=== PATIENT | female | born 1995 | race Caucasian/White ===

== ENCOUNTER 2022-01-19 00:22 | Emergency (ER) | payer OTHER, SELFPAY ==
[2022-01-19 00:35] VITALS: BP 137/80; PULSE 83; RESP 16; TEMP 37.1; O2SAT 100; BMI 22.8
--- NOTE | 2022-01-19 00:45 | ED_ITS ---
HPI - Abdominal Pain General Chief Complaint: Abdominal Pain Stated Complaint: Abd pain, nausea Time Seen by Provider: 01/19/22 00:38 Source: patient Mode of arrival: Ambulatory History of Present Illness HPI narrative: 26-year-old female nonsmoker with history gallbladder disease presents with her significant other and a chief complaint of epigastric pain associated with nausea over the past day or 2. She states that her symptoms started after eating some spicy Cheetos and now for the past day or 2 she is had increasing upper abdominal pain, burning and nausea soon after eating. She denies any radiation of her symptoms. She is had no fever or chills. She denies any change in her bowels. She is had no dysuria, frequency or urgency. Related Data Previous Rx's Medication Instructions Recorded ondansetron 4 mg disintegrating 4 mg PO TID-QID PRN nausea and 01/19/22 tablet vomiting #10 tabs pantoprazole 40 mg tablet,delayed 40 mg PO DAILY #30 tabs 01/19/22 release (Protonix) Review of Systems Review of Systems Narrative: GENERAL: See HPI HEENT: Denies sinus pain, ear pain, sore throat, difficulty swallowing, dizziness. RESPIRATORY: Denies dyspnea, cough, wheezing, hemoptysis, sputum. CARDIOVASCULAR: Denies chest pain, palpitations, orthopnea, edema, GASTROINTESTINAL: See HPI : Denies dysuria, frequency, incontinence, hematuria, urinary retention. MUSCULOSKELETAL: denies weakness, joint pain, or bony pain SKIN: Denies rash, skin lesions, or other NEUROLOGIC: Denies weakness, headache, numbness, change in speech, confusion, seizures, incoordination. PSYCHIATRIC: No concerning psychosocial issues. 12 point review of systems is negative except for those stated above Patient History Social History Smoking Status: Never smoker Smoking Status: Never smoker alcohol intake frequency: 0-2 drinks per day Substance Use Type: does not use Exam Narrative Exam Narrative: GENERAL: 26 year old patient appears stated age. Well-developed patient, in mild distress. HEAD: Atraumatic. Normocephalic. EYES: Pupils equal round and reactive. Extraocular motions intact. No scleral icterus. No injection or drainage. ENT: Nose without bleeding, purulent drainage. Throat without erythema, tonsillar hypertrophy or exudate. Airway patent. NECK: Trachea midline. Non tender CARDIOVASCULAR: Regular rate and rhythm without murmurs, gallops, or rubs. RESPIRATORY: Clear to auscultation. Breath sounds equal bilaterally. No wheezes, rales, or rhonchi. GASTROINTESTINAL: Abdomen soft, mild epigastric pain, nondistended. EXTREMITIES: No edema or joint tenderness. BACK: Nontender without deformity or crepitance. No flank tenderness. NEURO: AOx3. SKIN: No rash or erythema of visible areas Initial Vital Signs Initial Vital Signs: Vital Signs Temperature 98.7 F 01/19/22 00:35 Pulse Rate 83 01/19/22 00:35 Respiratory Rate 16 01/19/22 00:35 Blood Pressure 137/80 01/19/22 00:35 Pulse Oximetry 100 01/19/22 00:35 Oxygen Delivery Method 01/19/22 00:35 Course Orders Ordered: ED Orders 01/19/22 00:35 Urine Culture Stat Urine Microscopic Stat 01/19/22 00:55 Complete Blood Count AUTO DIFF Stat Comprehensive Metabolic Panel Stat Lipase Stat Discontinued Medications Sodium Chloride (Normal Saline 0.9%) 1,000 mls @ 1,000 mls/hr IV BOLUS ONE Stop: 01/19/22 01:44 Last Infusion: 01/19/22 01:55 Dose: 1,000 mls/hr Documented By: Admin: 01/19/22 00:56 Dose: 1,000 mls/hr Documented By: SANTOS Ondansetron HCl (Ondansetron 4 Mg/2 Ml Inj) 4 mg IV NOW ONE Stop: 01/19/22 00:46 Last Admin: 01/19/22 00:57 Dose: 4 mg Documented By: SANTOS Pantoprazole Sodium (Pantoprazole 40 Mg Vial) 40 mg IV NOW ONE Stop: 01/19/22 00:46 Last Admin: 01/19/22 00:56 Dose: 40 mg Documented By: SANTOS Vital Signs Vital signs: Vital Signs - 8 hr 01/19/22 00:35 Temperature 98.7 F Pulse Rate 83 Respiratory Rate 16 Blood Pressure 137/80 Pulse Oximetry 100 Oxygen Delivery Method Room Air MDM - Abdominal Pain Lab Data Result diagrams: 01/19/22 00:55 01/19/22 00:55 Labs: Lab Results 07/28/22 07/28/22 07/28/22 Range/Units 00:35 00:55 00:55 WBC 9.4 (4.5-11.0) X10^3/uL RBC 4.28 (4.0-5.2) X10^6/uL Hgb 13.0 (12.0-16.0) g/dL Hct 38.5 (36-46) % MCV 89.8 (80-100) fL MCH 30.4 (26-34) PG MCHC 33.8 (30-36) % RDW 12.8 (11.6-14.8) % Plt Count 332 (150-400) X10^3/uL Neut % (Auto) 44.1 L (50-75) % Lymph % (Auto) 43.3 H (25-40) % [place] % (Auto) 7.9 (3-14) % Eos % (Auto) 4.2 H (2-4) % Baso % (Auto) 0.5 (0-2) % Neut # (Auto) 4200 (9286-8223) /uL Lymph # (Auto) 4100 (0815-9351) /uL [place] # (Auto) 700 (0-900) /uL Eos # (Auto) 400 (0-450) /uL Baso # (Auto) 100 (0-100) /uL Sodium 139 (137-145) mmol/L Potassium 3.6 (3.4-5.1) mmol/L Chloride 101 (98-107) mmol/L Carbon Dioxide 26 (22-32) mmol/L BUN 15 (7-17) mg/dL Creatinine 0.74 (0.52-1.04) mg/dL Estimated GFR > 60 (>60) mL/min BUN/Creatinine Ratio 20.3 (6-22) Glucose 79 (70-100) mg/dL Calcium 9.4 (8.4-10.2) mg/dL Total Bilirubin 0.3 (0.2-1.3) mg/dL AST 19 (14-36) IU/L ALT 14 (<35) IU/L Alkaline Phosphatase 49 (38-126) U/L Total Protein 7.7 (6.3-8.2) g/dL Albumin 4.8 (3.5-5.0) g/dL Globulin 2.9 (1.7-4.1) g/dL Albumin/Globulin Ratio 1.7 (1.0-2.8) Lipase 72 (23-300) U/L Urine RBC None seen (0-5/HPF) Urine WBC 0-1/hpf (0-5/HPF) Ur Squamous Epith Cells 10-30 /hpf H (0-5/HPF) Urine Bacteria Moderate (10-30) H (None) Ur Culture Indicated? Culture not indicate Point of care testing: Point of Care Testing Test Results Negative Urine Dip Bedside Urine Glucose Negative Bedside Urine Bilirubin - Negative Bedside Urine Ketone - Negative Urine Specific [place] 1.025 Bedside Urine Occult Blood +/- Bedside Urine pH 6.0 Bedside Urine Protein - Negative Bedside Urine Urobilinogen - Negative Bedside Urine Nitrite - Negative Bedside Urine Leukocytes - Negative Esterase MDM Narrative Medical decision making narrative: Patient presents with epigastric pain after eating and has a surgically absent gallbladder. Vital signs are reassuring and there is no evidence of sepsis. Labs are unremarkable and though gallbladder, liver and pancreas are considered there are no findings in the labs to suggest this. She feels significant if not complete resolution of symptoms with above-stated therapies raising the question of other GI causes such as GERD or ulcer. We did discuss the possibility of advanced imaging such as CT scan but elect to hold off for now given how well she feels. Return precautions have been discussed and her questions have been answered to her apparent satisfaction Discharge Plan Departure Patient Disposition: Home Clinical Impression: Dyspepsia Instructions: DI for Dyspepsia Activity Restrictions/Additional Instructions: *You have been diagnosed with [abdominal pain likely due to acid reflux or an early ulcer * As we discussed your history and physical exam as well as labs and imaging are very reassuring. There is no evidence of any severe diagnoses that would require a specific or immediate intervention. *What to do: *Please continue to take your regular medications as directed. [x ] New medication prescriptions sent to your pharmacy: [[facility] in [place]] *Please follow up with your primary care provider in 2-3 days, call for an appointment. Let them know you were seen in the Emergency Department and that we ask that you be seen in follow up. We will electronically transmit a record of today's note if your PCP is in our system *Please consider a clear liquid diet for the next 24-48 hours and then slowly advance to regular as tolerated. Also, try to avoid alcohol, nicotine, caffeine, spicy, acidic or fatty foods as this may worsen your symptoms *If you do not have a primary care provider please contact the [facility] Resource line at [phone]. They will ask some questions about your medical history and help get you set up with a doctor in the community. *Return to Emergency Department if you should have any new, worsening or concerning symptoms, such as [fever greater than 101 F, shaking chills, worsening pain, persistent vomiting or other bothersome symptoms] Prescriptions: New pantoprazole [Protonix] 40 mg tablet,delayed release (DR/EC) 40 mg PO DAILY Qty: 30 0RF ondansetron 4 mg tablet,disintegrating 4 mg PO TID-QID PRN (Reason: nausea and vomiting) Qty: 10 0RF Visit Report Forms: Patient Portal/API
[2022-01-19] MEDS: PANTOPRAZOLE 40 MG VIAL IV (00:56)
[2022-01-19] MEDS: SODIUM CHLORIDE 0.9% 1,000 ML 1000 ML IV (00:56)
[2022-01-19] MEDS: ONDANSETRON 4 MG/2 ML INJ IV (00:57)
[2022-01-19 01:11] LABS: Add Manual Diff / Slide Review NO; Basophils Absolute Auto 100 /uL (0-100); Basophils Percent Auto 0.5 % (0-2); Eosinophils Absolute Auto 400 /uL (0-450); Eosinophils Percent Auto 4.2 % (2-4); Hematocrit 38.5 % (36-46); Lymphocytes Absolute Auto 4100 /uL (1100-4500); Lymphocytes Percent Auto 43.3 % (25-40); Mean Corpuscular HGB Conc 33.8 % (30-36); Mean Corpuscular Hemoglobin 30.4 PG (26-34); Mean Corpuscular Volume 89.8 fL (80-100); Monocytes Absolute Auto 700 /uL (0-900); Monocytes Percent Auto 7.9 % (3-14); Neutrophils Absolute Auto 4200 /uL (1500-7000); Neutrophils Percent Auto 44.1 % (50-75); Platelet Count 332 X10^3/uL (150-400); Red Blood Cell Count 4.28 X10^6/uL (4.0-5.2); Red Cell Distribution Width 12.8 % (11.6-14.8); White Blood Cell Count 9.4 X10^3/uL (4.5-11.0)
[2022-01-19 01:17] LABS: RBC Urine None Seen (0-5/HPF); WBC Urine 0-1/HPF (0-5/HPF)
[2022-01-19 01:18] LABS: Bacteria Urine Moderate (10-30); Squamous Epithelial Cell Urine 10-30 /HPF (0-5/HPF)
[2022-01-19 01:20] LABS: Alanine Aminotransferase 14 IU/L (<35); Albumin 4.8 g/dL (3.5-5.0); Albumin Globulin Ratio 1.7 (1.0-2.8); Alkaline Phosphatase 49 U/L (38-126); Aspartate Aminotransferase 19 IU/L (14-36); BUN Creatinine Ratio 20.3 (6-22); Bilirubin Total 0.3 mg/dL (0.2-1.3); Blood Urea Nitrogen 15 mg/dL (7-17); Calcium 9.4 mg/dL (8.4-10.2); Carbon Dioxide 26 mmol/L (22-32); Chloride 101 mmol/L (98-107); Estimated Glomerular Filt Rate > 60 mL/min (>60); Globulin 2.9 g/dL (1.7-4.1); Glucose 79 mg/dL (70-100); HEMOLYSIS < 15 (0-50); Lipase 72 U/L (23-300); Potassium 3.6 mmol/L (3.4-5.1); Sodium 139 mmol/L (137-145); Total Protein 7.7 g/dL (6.3-8.2)
== END 2022-01-19 01:57 | disposition home or self-care (01) ==
PROVIDERS: Emergency Provider Emergency Medicine
DX: R10.13 Epigastric pain (principal)
CPT/HCPCS: 80053; 81003; 81015; 81025; 83690; 85025; 87086; 96374; 96375; 99283; 99284; C9113; J2405

== ENCOUNTER → 2022-06-01 16:32 | Outpatient (CLI) | payer OTHER, SELFPAY ==
[2022-06-01 17:08] LABS: Add Manual Diff / Slide Review NO; Basophils Absolute Auto 0 /uL (0-100); Basophils Percent Auto 0.2 % (0-2); Eosinophils Absolute Auto 200 /uL (0-450); Eosinophils Percent Auto 1.9 % (2-4); Hematocrit 36.7 % (36-46); Hemoglobin 12.6 g/dL (12.0-16.0); Lymphocytes Absolute Auto 2000 /uL (1100-4500); Lymphocytes Percent Auto 19.4 % (25-40); Mean Corpuscular HGB Conc 34.5 % (30-36); Mean Corpuscular Hemoglobin 30.5 PG (26-34); Mean Corpuscular Volume 88.4 fL (80-100); Monocytes Absolute Auto 700 /uL (0-900); Monocytes Percent Auto 6.5 % (3-14); Neutrophils Absolute Auto 7600 /uL (1500-7000); Platelet Count 308 X10^3/uL (150-400); Red Blood Cell Count 4.15 X10^6/uL (4.0-5.2); Red Cell Distribution Width 13.2 % (11.6-14.8); White Blood Cell Count 10.5 X10^3/uL (4.5-11.0)
[2022-06-01 18:12] LABS: Hepatitis B Surface Antigen NEGATIVE s/c (NEGATIVE); Rubella Antibody IgG 97.4 IU/mL (>15)
[2022-06-01 18:28] LABS: HIV 1 & 2 Ab/Ag 4th Gen Combo NEGATIVE (NEGATIVE); Hep C Virus Ab w/Reflex Quant NEGATIVE s/c (NEGATIVE)
[2022-06-02 10:32] LABS: RPR Screen Non Reactive (Non Reactive)
[2022-06-03 09:30] LABS: Varicella IgG Antibody 714 index (Immune >165)
== END ==
PROVIDERS: Referring Provider Obstetrics & Gynecology; Visit Provider Obstetrics & Gynecology
DX: Z34.01 Encounter for supervision of normal first pregnancy, first trimester (principal)
CPT/HCPCS: 36415; 80055; 86787; 86803; 86850; 86900; 86901; 87389

== ENCOUNTER → 2022-07-13 15:12 | Outpatient (CLI) | payer OTHER, SELFPAY ==
[2022-07-17 12:09] LABS: AFP Value 38.9 ng/mL (.); Gest Age on Col Date 19.4 weeks (.); Insulin Dep Diabetes No (.); OSBR Risk 1IN 10000 (.); Results Report (.); Test Results *Screen Negative* (.)
== END ==
PROVIDERS: Referring Provider Obstetrics & Gynecology; Visit Provider Obstetrics & Gynecology
DX: Z34.02 Encounter for supervision of normal first pregnancy, second trimester (principal); Z3A.18 18 weeks gestation of pregnancy
CPT/HCPCS: 36415; 82105

== ENCOUNTER → 2022-07-26 09:53 | Outpatient (CLI) | payer OTHER, SELFPAY ==
--- NOTE | 2022-07-26 09:54 | DI.US.S_ITS ---
PROCEDURE: US OB >= 14 WEEKS FETUS INDICATIONS: ANATOMY OUTSIDE/PRIOR DATING DATA: Last menstrual period (LMP): 02/22/2022 LMP-based estimated date of delivery (NATY): 11/29/2022 First dating scan (date and location): 05/02/2022 Estimated date of delivery (NATY) from first dating scan: 12/05/2022 The calculations are made using the working NATY of 11/29/2022. TECHNIQUE: Real-time scanning was performed of the fetus, with image documentation and biometric measurements. Endovaginal scanning: Not performed. COMPARISON: [facility], , OB >= 14 WEEKS FETUS, 06/15/2022, 16:32. FINDINGS: General: A single living intrauterine gestation is present. Presentation: Breech Placenta: Placental position is posterior, without previa. Amniotic fluid index: 9.9 cm, normal range is 5-24 cm. Single deepest vertical pocket is 3.2 cm. heart rate: 136 beats per minute. Maternal cervical canal: 3.9 cm long. Normal lower limit is 2.5 cm. biometrics: Biparietal diameter: 4.9 cm, 20 weeks 5 days Head circumference: 18.8 cm, 21 weeks 1 day Abdominal circumference: 15.9 cm, 21 weeks 0 days Femur length: 3.7 cm, 21 weeks 4 days Clinically estimated gestational age: 22 weeks 0 days Composite gestational age from present scan: 21 weeks 1 day Estimated weight and percentile: 411 grams, 14th percentile Anatomic survey: Neuro: Ventricles are non-dilated at less than 10 mm. Cisterna magna is normal at 3-11 mm. Cerebellum is normal in size and morphology. Nuchal skin fold: Not well visualized, partially related to gestational age. Face: Nose and lips, facial profile are normal. Spine: No evidence for spina bifida. Heart: 4-chambered heart is present, with normal ventricular outflow tracts. Diaphragm: Diaphragm is intact. Stomach: Left-sided stomach is present. Kidneys: No hydronephrosis. Normal is less than 5 mm in 2nd trimester, less than 7 mm in 3rd trimester. Cord: 3-vessel cord has orthotopic insertion. Bladder: Normal in size. Extremities: All 4 extremities identified. IMPRESSION: 1. Single live intrauterine . 2. Estimated weight is at the 14th percentile for gestational age. 3. anatomic survey is within normal limits. Nuchal fold is not well evaluated due to gestational age. We strive to produce accurate, complete, and clear reports of imaging services. To assist us in improving patient care, this report was composed using standard report templates and voice recognition software. Therefore, it may contain abnormal punctuation, insertions and/or omissions. Occasional wrong-word or sound-alike substitutions may occur. Though we review the report and make efforts to correct it, we do recommend that the report be read carefully in proper context to recognize any text inaccuracies. Approved by: Mp Anthony M.D. on 07/26/2022 at 13:19
== END ==
PROVIDERS: Referring Provider Obstetrics & Gynecology; Visit Provider Obstetrics & Gynecology
DX: Z34.82 Encounter for supervision of other normal pregnancy, second trimester (principal); Z3A.21 21 weeks gestation of pregnancy
CPT/HCPCS: 76811

== ENCOUNTER → 2022-08-10 14:37 | Outpatient (CLI) | payer OTHER, SELFPAY | PROVIDERS: Visit Provider Obstetrics & Gynecology | DX: Z34.01 Encounter for supervision of normal first pregnancy, first trimester (principal) | CPT/HCPCS: 87086 ==

== ENCOUNTER → 2022-08-25 11:04 | Outpatient (CLI) | payer OTHER, SELFPAY ==
[2022-08-25 13:32] LABS: Hematocrit 35.3 % (36-46); Hemoglobin 12.2 g/dL (12.0-16.0)
[2022-08-25 14:10] LABS: GTT (PREG) 1 Hour PP 50gm Dose 95 mg/dL (76-139)
== END ==
PROVIDERS: Referring Provider Obstetrics & Gynecology; Visit Provider Obstetrics & Gynecology
DX: Z34.02 Encounter for supervision of normal first pregnancy, second trimester (principal); Z3A.26 26 weeks gestation of pregnancy
CPT/HCPCS: 82950; 85014; 85018

== ENCOUNTER → 2022-11-15 12:06 | Outpatient (CLI) | payer OTHER, SELFPAY ==
[2022-11-16 10:42] LABS: Strep Grp B PCR POS for Grp B Strep
== END ==
PROVIDERS: Visit Provider Obstetrics & Gynecology
DX: Z34.03 Encounter for supervision of normal first pregnancy, third trimester (principal); Z3A.37 37 weeks gestation of pregnancy
CPT/HCPCS: 87653

== ENCOUNTER 2022-12-04 16:28 | Outpatient (CLI) | payer OTHER, SELFPAY ==
--- NOTE | 2022-12-04 17:15 | PM.OBTRLD ---
Visit Information Visit Information Date of evaluation: 12/04/22 Primary OB Provider: Beckie Valles On-call OB Provider: Beckie Valles Reason for Evaluation: Yes non-stress test non-stress test reason: other (Low heart rate in the office) [facility]LY [facility] Medical History (Updated 10/19/22 @ 10:05 by Lance Rodriguez MD) Allergies Chemical sensitivity Chicken pox Eczema Headache Herpes HSV-1 infection Migraines Patellar dislocation Seasonal allergies Surgical History (Updated 05/04/22 @ 22:04 by Barb Virk) Anesthesia History of cholecystectomy (~2012) [place] teeth extracted Family History (Updated 05/04/22 @ 22:06 by Barb Virk) Father Hodgkins lymphoma Non-Hodgkin lymphoma Hypertension Hyperlipidemia Cancer Mother Uterine fibroid Ovarian tumor Hypoglycemia Chemical sensitivity Hearing loss Brother Hearing loss Scoliosis Grandfather Stroke Heart disease Degenerative joint disease Hyperlipidemia Grandmother Oxygen dependent Social History marital status: unmarried,living together number of children: 0 household members: significant other lives independently: Yes caregiver/support person: No housing: other (5th wheel camper trailer) pets and animals: Yes (1 dog, aware of toxo precautions) education level: college (some college) occupational status: employed current occupational exposures/hazards: Yes (alcohol and chemical fumes; will get chemical respirator mask) special camron needs: No travel history: recent (domestic only) seatbelt use: always water heater temp set < 120 deg: No working smoke detector in home: Yes fire extinguisher in home: Yes carbon monox detector in home: Yes firearms in home: Yes firearms unloaded and locked: Yes do you feel safe at home: Yes Smoking Status: Former smoker (vaped, quit age 26) Tobacco: How many years used: 1 second hand exposure: No alcohol intake: former (2-4/week prior to ) substance use type: does not use during the past year weight has: remained stable well-balanced diet: rarely or never daily servings fruits/ve-1 (1-2) caffeine: Yes (aware of 200mg limit) Type(s) of exercise: walking, aerobic and weight lifting frequency: daily Evaluation Evaluation Baseline heart rate: 110 Variability: Moderate (11-25) monitor accelerations: Present Monitor Decelerations: Absent Category of Tracing: Reactive Diagnosis, Plan/Disposition Plan/Disposition Plan: Assessment: 27-year-old 1 para 0 at 39-,6/7 weeks gestation with low heart rate in the office by Doppler Reactive nonstress test Plan: Patient to come in December 05, 2022 for cervical ripening and then Pitocin induction on December 06, 2022 kick counts discuss OB Disposition: home
== END 2022-12-04 17:10 | disposition home or self-care (01) ==
LOC: OB 12-11 07:33
PROVIDERS: Referring Provider Obstetrics & Gynecology; Visit Provider Obstetrics & Gynecology
DX: O36.8330 Maternal care for abnormalities of the fetal heart rate or rhythm, third trimester, not applicable or unspecified (principal); Z3A.39 39 weeks gestation of pregnancy
CPT/HCPCS: 59025; G0378; G0379

== ENCOUNTER 2022-12-05 18:59 | Observation (INO) | payer OTHER, SELFPAY | END 2022-12-05 21:25 | disposition home or self-care (01) | LOC: LABOR 19:01 | PROVIDERS: Admitting Provider Obstetrics & Gynecology; Referring Provider Obstetrics & Gynecology; Visit Provider Obstetrics & Gynecology | DX: O48.0 Post-term pregnancy (principal); Z3A.40 40 weeks gestation of pregnancy | CPT/HCPCS: 59025; 59050; G0378; G0379 ==

== ENCOUNTER 2022-12-06 06:07 | Inpatient (IN) | payer OTHER, SELFPAY ==
[2022-12-06 06:37] LABS: Add Manual Diff / Slide Review NO; Basophils Absolute Auto 100 /uL (0-100); Basophils Percent Auto 0.7 % (0-2); Eosinophils Absolute Auto 200 /uL (0-450); Eosinophils Percent Auto 1.9 % (2-4); Hematocrit 40.1 % (36-46); Hemoglobin 14.2 g/dL (12.0-16.0); Lymphocytes Absolute Auto 2700 /uL (1100-4500); Mean Corpuscular HGB Conc 35.4 % (30-36); Mean Corpuscular Volume 90.4 fL (80-100); Monocytes Absolute Auto 400 /uL (0-900); Monocytes Percent Auto 4.1 % (3-14); Neutrophils Absolute Auto 7300 /uL (1500-7000); Neutrophils Percent Auto 68.3 % (50-75); Platelet Count 266 X10^3/uL (150-400); Red Blood Cell Count 4.44 X10^6/uL (4.0-5.2); White Blood Cell Count 10.7 X10^3/uL (4.5-11.0)
[2022-12-06] MEDS: LACTATED RINGERS 1,000 ML 100 ML IV (09:20)
[2022-12-06] MEDS: OXYTOCIN PREMIX 30 UNIT/500 ML PLAST..BAG IV (09:20)
[2022-12-06] MEDS: AMPICILLIN 2,000 MG in SODIUM CHLORIDE 0.9% 100 ML 200 MG IV (12:41)
[2022-12-06] MEDS: AMPICILLIN 1,000 MG in SODIUM CHLORIDE 0.9% 100 ML 200 MG IV ×2 (16:45→20:44)
--- NOTE | 2022-12-06 17:48 | PM.OBHP.IH.1 ---
OB HPI Date/Time Date of admission: 12/06/22 Date Patient Seen: 12/06/22 Time Patient Seen: 07:45 History of Present Condition Chief complaint: induction NATY Calculator Estimated Delivery Date Method Current WG Current Estimate 12/05/22 Ultrasound #1 40w 1d Other Estimates 11/29/22 LMP (Uncertain) 41w 0d Estimated Gestational Age (weeks): 40+1 : 1 Para: 0 care: good care, initiated at week # (9), number of visits (13) and pounds weight gain (42) Dating criteria OB: LMP confirmed by 1st trimester US Ultrasounds: normal 1st trimester US Obstetrical complications: none Medical complications OB: none Indications Indication for induction OB: post dates Preadmission Labs Last OB Lab Results: Blood Type O Positive 12/06/22 06:15 Antibody Screen Negative 12/06/22 06:15 Hematocrit 40.1 % (36-46) 12/06/22 06:15 Hemoglobin 14.2 g/dL (12.0-16.0) 12/06/22 06:15 Hepatitis B Surface Antigen Negative s/c (NEGATIVE) 06/01/22 16:36 Hepatitis C Antibody Negative s/c (NEGATIVE) 06/01/22 16:36 Rubella Antibody 97.4 IU/mL (>15) 06/01/22 16:36 Varicella-Zoster IgG Antibody 714 index (Immune >165) 06/01/22 16:36 Glucose 1 Hour 95 mg/dL (76-139) 08/25/22 12:23 Group B Streptococcus (PCR) Pos for grp b strep H 11/15/22 12:06 -: Chlamydia screen: negative, Gonorrhea screen: negative and Urine: negative -: PAP smear: Normal Genetic Screens: Cell-free DNA: Normal (normal female) and Alpha-fetoprotein: Normal External Labs -: Urine: negative Evaluation Evaluation Baseline heart rate: 125 Variability: Moderate (11-25) monitor accelerations: Present Monitor Decelerations: Absent Uterine Contraction Intensity: Mild Dilation (cm): 1 Effacement (%): 85 station: -1 Position of cervix: mid Consistency: medium [facility] Medical History (Updated 10/19/22 @ 10:05 by Lance Rodriguez MD) Allergies Chemical sensitivity Chicken pox Eczema Headache Herpes HSV-1 infection Migraines Patellar dislocation Seasonal allergies Surgical History (Updated 05/04/22 @ 22:04 by Barb Virk) Anesthesia History of cholecystectomy (~2012) [place] teeth extracted Family History (Updated 05/04/22 @ 22:06 by Barb Virk) Father Hodgkins lymphoma Non-Hodgkin lymphoma Hypertension Hyperlipidemia Cancer Mother Uterine fibroid Ovarian tumor Hypoglycemia Chemical sensitivity Hearing loss Brother Hearing loss Scoliosis Grandfather Stroke Heart disease Degenerative joint disease Hyperlipidemia Grandmother Oxygen dependent Social History marital status: unmarried,living together number of children: 0 household members: significant other lives independently: Yes caregiver/support person: No housing: other (5th wheel camper trailer) pets and animals: Yes (1 dog, aware of toxo precautions) education level: college (some college) occupational status: employed current occupational exposures/hazards: Yes (alcohol and chemical fumes; will get chemical respirator mask) special camron needs: No travel history: recent (domestic only) seatbelt use: always water heater temp set < 120 deg: No working smoke detector in home: Yes fire extinguisher in home: Yes carbon monox detector in home: Yes firearms in home: Yes firearms unloaded and locked: Yes do you feel safe at home: Yes Smoking Status: Former smoker Tobacco: How many years used: 1 second hand exposure: No alcohol intake: former (2-4/week prior to ) substance use type: does not use during the past year weight has: remained stable well-balanced diet: rarely or never daily servings fruits/ve-1 (1-2) caffeine: Yes (aware of 200mg limit) Type(s) of exercise: walking, aerobic and weight lifting frequency: daily Meds Home Medications and Allergies Home Medications Medication Instructions Recorded Confirmed Type breast pump #1 ea 11/15/22 12/06/22 Rx Allergies Allergy/AdvReac Type Severity Reaction Status Date / Time acetaminophen [From Percocet] Allergy Intermediate Hives Verified 12/04/22 15:47 oxycodone [From Percocet] Allergy Intermediate Hives Verified 12/04/22 15:47 OB Exam Narrative Exam Narrative: Generally: No acute distress Lungs: Clear to auscultation bilaterally Cardiovascular: Regular rate and rhythm Fundal height: 40 cm Estimated weight: 7-1/2 lb Extremities: Trace edema Objective Labs 12/06/22 06:15 Labs: Laboratory Results - last 24 hr 12/06/22 12/06/22 06:15 06:15 WBC 10.7 RBC 4.44 Hgb 14.2 Hct 40.1 MCV 90.4 MCH 32.0 MCHC 35.4 RDW 13.0 Plt Count 266 Neut % (Auto) 68.3 Lymph % (Auto) 25.0 [place] % (Auto) 4.1 Eos % (Auto) 1.9 L Baso % (Auto) 0.7 Neut # (Auto) 7300 H Lymph # (Auto) 2700 [place] # (Auto) 400 Eos # (Auto) 200 Baso # (Auto) 100 Blood Type O Positive Antibody Screen Negative Assessment and Plan Assessment and Plan Assessment and Plan narrative: Assessment: 27-year-old 1 para 0 at 40 and 1/7 weeks gestation for induction of labor Plan: Pitocin per protocol 2 Artificial rupture of membranes when able Expected management to spontaneous vaginal delivery Time Spent with Patient Total time spent with greater than 50% in coordination of care (as documented) at patient's floor/unit and/or counseling patient:: 15-24 minutes
--- NOTE | 2022-12-06 17:53 | PM.OBPNLAB ---
Date/Time Date Patient Seen: 12/06/22 Time Patient Seen: 17:53 Pain Control Pain control: tolerating well Pelvic Exam Dilation (cm): 1 Effacement (%): 85 station: -1 Amniotic membrane status: Intact Contractions Contractions on admission: none Pitocin rate (mU/min): 4 Contraction frequency (min): 2 Contraction duration (min): 1 Contraction pattern: Regular Contraction intensity: Moderate Status status: Category l Heart Rate Baseline: 125 Monitor Accelerations: Present Monitor Decelerations: Variable Monitor Variability: Moderate Assessment and Plan Assessment: induction ongoing Comments: AROM with copious clear amniotic fluid Epidural as needed Expectant management to
--- NOTE | 2022-12-06 18:41 | PM.ANES.PR ---
Operative Date/Time/Diagnoses Date of procedure: 12/06/22 Time of procedure: 18:09 Pre-op diagnosis: Labor pain
--- NOTE | 2022-12-06 18:42 | PM.AN.REGBLK ---
Regional Block Pre-procedure Procedure: Continuous Lumbar Epidural for L&D PMH/ROS narrative: Labor pain Exam narrative: WNL ASA Class: II Labs: Hct 40.1 % (36-46) 12/06/22 06:15 Plt Count 266 X10^3/uL (150-400) 12/06/22 06:15 Medications: Current Medications Generic Name Dose Route Start Last Admin Trade Name Freq PRN Reason Stop Dose Admin Carboprost Tromethamine 250 mcg 12/06/22 06:14 Carboprost 250 Mcg/Ml Ampul IM Q90M PRN Bleeding Diphenhydramine HCl 25 mg 12/06/22 18:40 Diphenhydramine 50 Mg/Ml Vial IV Q10M PRN Pruritis Fentanyl 50 mcg 12/06/22 06:14 Fentanyl 100 Mcg/2 Ml Inj IV Q1H PRN Pain, Moderate (4-6) Lactated Ringer's 1,000 mls @ 100 mls/hr 12/06/22 06:15 12/06/22 09:20 Lactated Ringers IV 100 mls/hr CONT AWILDA Administration Tranexamic Acid 1,000 mg/ 100 mls @ 200 mls/hr 12/06/22 06:14 Sodium Chloride IV NOW PRN Bleeding Ampicillin Sodium 1,000 mg/ 100 mls @ 200 mls/hr 12/06/22 10:15 12/06/22 16:45 Sodium Chloride IV 200 mls/hr Q4H AWILDA Administration Oxytocin/Lactated Ringer's 30 unit in 500 mls @ 200 mls/hr 12/06/22 06:14 Oxytocin Premix IV CONT PRN Bleeding Protocol Oxytocin/Lactated Ringer's 30 unit in 500 mls @ 2 mls/hr 12/06/22 08:09 12/06/22 09:20 Oxytocin Premix IV 2 milliunit/min TITRATE AWILDA 2 mls/hr Administration Protocol 2 MILLIUNIT/MIN FENT 2MCG/ML BUPIV 0.125% EPI 200 mcg in 100 mls @ 12 mls/hr 12/06/22 18:45 Fentanyl/Bupiv/Ns 2mcg/Ml - 0.125% EPIDURAL CONT AWILDA Lidocaine HCl 20 ml 12/06/22 06:14 Lidocaine 1% 20 Ml INJ INTRA-OP PRN Post Delivery Methylergonovine Maleate 0.2 mg 12/06/22 06:14 Methylergonovine 0.2 Mg/Ml Vial IM NOW PRN Bleeding Methylergonovine Maleate 0.2 mg 12/06/22 06:14 Methylergonovine 0.2 Mg Tablet PO Q6HR PRN Heavy Bleeding Misoprostol 400 mcg 12/06/22 06:14 Misoprostol 200 Mcg Tablet SL NOW PRN Bleeding Misoprostol 800 mcg 12/06/22 06:14 Misoprostol 200 Mcg Tablet MD NOW PRN Bleeding Nalbuphine HCl 2.5 mg 12/06/22 18:40 Nalbuphine 20 Mg/Ml Ampul IV Q10M PRN Pruritis Naloxone HCl 0.2 mg 12/06/22 06:14 Naloxone 0.4 Mg/Ml Vial IV Q2MIN PRN Opiate Reversal Oxytocin 10 unit 12/06/22 06:14 Oxytocin 10 Unit/Ml Vial IM NOW PRN Bleeding Allergies: Allergies Allergy/AdvReac Type Severity Reaction Status Date / Time acetaminophen [From Percocet] Allergy Intermediate Hives Verified 12/04/22 15:47 oxycodone [From Percocet] Allergy Intermediate Hives Verified 12/04/22 15:47 Procedure Insertion date: 12/06/22 Insertion time: 18:15 Prep/Local: betadine x3 Interspace: L4-5 Patient position: sitting Needle: 18 gauge Scarlett Loss of resistance with: air CHAPARRO at (cm): 8 Catheter placed at SKIN (cm): 13 Catheter in SPACE (cm): 5 Initial Medications TEST DOSE time: 18:18 BOLUS DOSE time: 18:20 BOLUS DOSE (mL): 10 BOLUS DOSE med: 0.25% bupivacaine Infusion Initial rate (mL/hr): 12
[2022-12-07] MEDS: FENT 2MCG/ML BUPIV 0.125% EPI 200 MCG/100 ML PLAST..BAG 12 MCG EPIDURAL ×2 (00:23→06:20)
[2022-12-07] MEDS: AMPICILLIN 1,000 MG in SODIUM CHLORIDE 0.9% 100 ML 200 MG IV ×3 (00:45→09:19)
[2022-12-07] MEDS: LACTATED RINGERS 1,000 ML 100 ML IV (07:12)
[2022-12-07] MEDS: ONDANSETRON 4 MG/2 ML INJ IV (07:46)
--- NOTE | 2022-12-07 09:39 | PM.OBPNLAB ---
Date/Time Date Patient Seen: 12/07/22 Time Patient Seen: 09:39 Pain Control Pain control: epidural Pelvic Exam Dilation (cm): 10 Effacement (%): 100 station: +1 Amniotic membrane status: Ruptured Contractions Contractions on admission: none Monitor mode: External Pitocin rate (mU/min): 6 Contraction frequency (min): 3 Contraction duration (min): 1 Contraction pattern: Regular Contraction intensity: Strong/Firm Status status: Category l Heart Rate Baseline: 140 Monitor Accelerations: Present Monitor Decelerations: Variable Monitor Variability: Moderate Assessment and Plan Assessment: active labor Comments: Continue pushing Expectant management to
--- NOTE | 2022-12-07 11:44 | P.PCNOB_ITS ---
Events: Labor Induction Labor & Delivery Delivery date: 12/07/22 Intrapartal Events: Prolonged Labor > 20 hours and Prolonged 2nd Stage > 2.5 hours Cervical ripening method: none Induction method: per pitocin protocol Delivery augmentation: rupture of membranes Delivery monitor: external FHT and external uterine Route of delivery: Episiotomy description: None L&D Laceration Description: Labial (bilateral) Delivery repair: chromic Quantitative Blood Loss: 100 Anesthesia Type: Epidural Complications: None Narrative: Patient complete and pushed for 3 hours and 9 minutes. At 11:07 a.m., a live female infant delivered spontaneously in the ZULLY presentation over an intact perineum. No nuchal cord. There was a body cord around the shoulder and the leg that was reduced. The infant was placed on mom's abdomen. The cord was double clamped and cut after it stopped pulsing. Cord bloods were obtained. Pitocin was given in the IV fluids. The placenta delivered intact with a three- vessel cord at 11:25 a.m.. Fundus was massaged to firm. Bilateral labial lacerations were repaired with 4-0 chromic in a running interlocking fashion. Hemostasis was achieved. QBL: 100 cc. Apgars 8 at 1 minute and 9 at 5 minutes. . Epidural analgesia. Mom and stable to recovery. [place] Baby 1: Infant gender: Female Presentation: vertex Position: Right Occiput Anterior Placenta delivery description: Spontaneous Cord Vessel Description: 3 Vessels and Around Body x1 (shoulder and leg ) score (1 min): 8 score (5 min): 9 weight: 7 lb 12 oz Plan for aftercare: Routine care
[2022-12-07] MEDS: IBUPROFEN 600 MG TABLET PO ×2 (13:41→20:43)
[2022-12-07] MEDS: ACETAMINOPHEN 325 MG TABLET 650 MG PO ×2 (13:41→20:43)
[2022-12-07] MEDS: LANOLIN OINT 7 GM 1 APPLIC TOP (13:42)
[2022-12-07] MEDS: DERMOPLAST SPRAY 20% 60 ML 1 SPRAY TOP (13:43)
[2022-12-08 06:51] LABS: Hematocrit 35.2 % (36-46); Hemoglobin 12.2 g/dL (12.0-16.0)
[2022-12-08] MEDS: IBUPROFEN 600 MG TABLET PO (09:44)
[2022-12-08] MEDS: PRENATAL VIT,CALC/IRON/FOLIC 1 TABLET 1 TAB PO (09:44)
[2022-12-08] MEDS: DOCUSATE 100 MG CAPSULE PO (09:44)
[2022-12-08] MEDS: ACETAMINOPHEN 325 MG TABLET 650 MG PO (09:44)
--- NOTE | 2022-12-16 16:53 | PM.OBDS.1 ---
Discharge Providers Provider Date of admission: 12/06/22 06:07 Discharge Date: 12/08/22 Consults: 12/06/22 06:14 Consult to Anesthesiology Urgent Comment: Consulting Provider: Anesthesiologist Reason for consultation: Epidural Has provider been notified: No 12/08/22 11:41 Consult to [employer]ic Routine Comment: Discharge provider: Beckie Valles MD Summary Hospital Course Date Patient Seen: 12/08/22 Time Patient Seen: 09:30 Diagnoses: 40-,1/7 weeks gestation Induction of labor with Pitocin Artificial rupture of membranes Epidural analgesia Spontaneous vaginal delivery Bilateral labial laceration repair Hospital Course: Patient is a 27-year-old 1 para 1 who presented on December 06, 2022 at 40-,1/7 weeks gestation for induction of labor. She was started on Pitocin. In the early evening artificial rupture of membranes was performed with copious clear amniotic fluid. She received an epidural shortly thereafter. She progressed overnight to complete dilation at 9:39 a.m. on December 07, 2022. She had a spontaneous vaginal delivery at 11:07 a.m.. After 3 hours of pushing. She had bilateral labial lacerations which were repaired. Her course was unremarkable. She was discharged home on December 08, 2022. She will follow-up in 6 weeks. Peripartum Data Infant Delivery Method: Natural Vaginal Laceration Description: Labial (Bilateral) Episiotomy description: None Procedures: Pitocin induction of labor Artificial rupture of membranes Epidural analgesia Spontaneous vaginal delivery Bilateral labial laceration repair complications: none 1: Gender: Female Status at Discharge Cognitive/behavioral status at discharge: oriented Functional status at discharge: independent ambulation Overall status at discharge: patient is progressing back to baseline Time Spent with Patient Time attestation: Total time spent providing and/or coordinating discharge services: Time spent: Less than 30 minutes Objective Labs 12/08/22 06:35 Exam Narrative Exam Narrative: Generally: Patient is sitting up in bed, holding , no acute distress Fundus: Firm at U -1 Extremities: Trace edema, negative Homans Discharge Plan Discharge Plan Patient Disposition: Home Provider Discharge Comment: Call with fever, chills, or bleeding vaginally more than a pad in an hour Ibuprofen 600 mg every 6 hours as needed for cramping Continue vitamins Push oral fluids Discharge orders & Medications Prescriptions: No Action (DME) breast pump Device See Rx Instructions .ROUTE .MEDSUPPLY Qty: 1 0RF Rx Instructions: Double electric breast pump and supplies Follow up/Referrals: Beckie Valles MD [Physician] - 01/16/23 8:30 am (6 week visit. Please check in at 8:15 AM) Diet/Activity/Treatments Diet: Regular Skin/Wound/Dressing Care Report to your healthcare provider any signs of infection, such as:: chills, fever, increased pain and unusual drainage Visit Report/Discharge Packet Instructions: DI for Labor and Delivery, Vaginal Stand Alone Forms: Patient Portal/API, Stroke Signs & Symptoms Discharges patient from system. Discharge Date/Time: 12/08/22 14:57
== END 2022-12-08 14:57 | disposition home or self-care (01) | DRG 807 ==
PROVIDERS: Admitting Provider Obstetrics & Gynecology; Referring Provider Obstetrics & Gynecology; Visit Provider Obstetrics & Gynecology
DX: O48.0 Post-term pregnancy (principal); Z37.0 Single live birth; O63.0 Prolonged first stage (of labor); Z3A.40 40 weeks gestation of pregnancy; O99.824 Streptococcus B carrier state complicating childbirth; O70.0 First degree perineal laceration during delivery
CPT/HCPCS: 36415; 59050; 59400; 85014; 85018; 85025; 86850; 86900; 86901; G0379; J0290; J2405; J2590